=== PATIENT | male | born 1980 | race Caucasian/White ===

== ENCOUNTER 2017-10-17 13:11 | Emergency (ER) | payer OTHER ==
[2017-10-17 13:18] VITALS: BP 147/89; PULSE 85; TEMP 97; BMI 28.8
--- NOTE | 2017-10-17 14:31 | PDOC ---
History of Present Illness - General Chief Complaint: RX Refill Stated Complaint: RX REFILL Time Seen by Provider: 10/17/17 14:02 History Source: Patient Exam Limitations: No Limitations - History of Present Illness Initial Comments: 10/17/17 14:26 36yo Male patient presents to ED c/o needing medications refill. Patient states he takes Remeron 15mg qhs and has been out of his meds x 7 days. He denies any other complaints at this time. Timing/Duration: 1 week Modifying Factors: worse with: cold therapy, eating, immobilization, medication , movement, rest, other Associated Symptoms: denies: denies symptoms, chest pain, cough, diaphoresis, fever/chills, headaches, loss of appetite, malaise, nausea/vomiting, rash, seizure, shortness of breath, syncope, weakness, other Past History - Travel Traveled outside of the country in the last 30 days: No Close contact w/someone who was outside of country & ill: No - Past Medical History Allergies/Adverse Reactions: Allergies Allergy/AdvReac Type Severity Reaction Status Date / Time No Known Allergies Allergy Verified 10/17/17 13:18 Home Medications: Ambulatory Orders Mirtazapine [Remeron -] 15 mg PO HS #14 tablet 10/17/17 COPD: No Psychiatric Problems: Yes (depression) - Suicide/Smoking/Psychosocial Hx Smoking History: Current every day smoker Number of Cigarettes Smoked Daily: 3 Information on smoking cessation initiated: No Review of Systems - Review of Systems Able to Perform ROS?: Yes Is the patient limited Hungarian proficient: No All Other Systems: Reviewed and Negative *Physical Exam - Vital Signs Last Vital Signs Temp Pulse Resp BP Pulse Ox 97 F L 85 18 147/89 99 10/17/17 13:13 10/17/17 13:13 10/17/17 13:13 10/17/17 13:13 10/17/17 13:13 - Physical Exam General Appearance: Yes: Nourished, Appropriately Dressed, Intoxicated. No: Apparent Distress, Mild Distress, Moderate Distress, Severe Distress HEENT: positive: PATY, Normal ENT Inspection, Normal Voice, Symmetrical, TMs Normal, Pharynx Normal. negative: Tonsillar Exudate, Tonsillar Erythema, Nasal Congestion, Rhinorrhea, Sinus Tenderness, TM Bulging, TM Dull, TM Erythema Neck: positive: Trachea midline, Supple. negative: Rigid, Stridor, Lymphadenopathy (R), Lymphadenopathy (L), Tender lateral, Tender midline Respiratory/Chest: positive: Lungs Clear, Normal Breath Sounds. negative: Chest Tender, Respiratory Distress, Accessory Muscle Use, Labored Respiration, Rapid RR, Decreased Breath Sounds, Stridor, Wheezing Cardiovascular: positive: Regular Rhythm, Regular Rate. negative: Tachycardia Musculoskeletal: positive: Normal Inspection. negative: CVA Tenderness, Decreased Range of Motion, Vertebral Tenderness Extremity: positive: Normal Capillary Refill, Normal Inspection, Normal Range of Motion. negative: Pedal Edema, Swelling, Calf Tenderness, Erythema, Inflammation Integumentary: positive: Normal Color, Dry, Warm Neurologic: positive: solutions consultant II-XII NML intact, Fully Oriented, Alert, Normal Mood/ Affect, Normal Response, Motor Strength 5/5 *DC/Admit/Observation/Transfer Diagnosis at time of Disposition: Medication refill - Discharge Dispostion Disposition: HOME Condition at time of disposition: Stable Admit: No - Prescriptions Prescriptions: Mirtazapine [Remeron -] 15 mg PO HS #14 tablet - Referrals Referrals: Heidi Holder MD [Staff Physician] - Asif Prasad MD [Staff Physician] - - Patient Instructions Printed Discharge Instructions: DI for Depression -- Adult Additional Instructions: Follow up with Dr. Holder (Psychiatry) and Dr. Prasad (Internal medicine) to establish care and medication management. Return if any concerns for further evaluation. Print Language: [email or web address] - Post Discharge Activity
== END 2017-10-17 14:33 | disposition home or self-care (01) ==
LOC: JERFT 13:11
DX: Z76.0 Encounter for issue of repeat prescription (principal)
CPT/HCPCS: 99281-25